=== PATIENT | male | born 2005 | race Hispanic/Latino ===

== ENCOUNTER 2024-05-14 17:29 | Emergency (ER) | payer OTHER ==
[2024-05-14] MEDS ORDERED: Ibuprofen 200 MG TAB ONE (17:40)
[2024-05-14] MEDS ORDERED: Acetaminophen 325 MG TAB ONE (19:01)
[2024-05-14] MEDS ORDERED: Dexamethasone 10 MG/ML VIAL ONE (19:01)
[2024-05-14] MEDS ORDERED: Bicillin LA 1.2 MILLION UNITS/2 ML SYRINGE IM SCH (19:45)
== END 2024-05-14 20:02 | disposition home or self-care (01) ==
LOC: CSHERS 17:29
DX: J03.90 Acute tonsillitis, unspecified (principal)
CPT/HCPCS: 87081; 87430; 96372; 99283; J0561; J1100